=== PATIENT | male | born 1945 | race African-American/Black ===

== ENCOUNTER 2019-09-23 12:01 | Emergency (ER) | payer MEDICARE ==
[~2019-09-23] VITALS: Ht 170.2 cm; Wt 81.6 kg
[~2019-09-23 12:01] MED LIST: AMLO1CAP PO; ASPI-482 PO; HYDR-3164 PO; LOVA20TA2 PO; METF500T16 PO; MULT-658 PO
[2019-09-23 12:33] VITALS: BP 147/82
--- NOTE | 2019-09-23 13:33 | RAD ---
EXAM: Left lower extremity venous Doppler sonogram. HISTORY: Pain and swelling. TECHNIQUE: Florez scale and color Doppler sonographic evaluation of the left lower extremity veins with spectral waveform analysis was performed. FINDINGS: There is normal color flow, normal compressibility and there are normal spectral waveforms in the common femoral, superficial femoral, popliteal, posterior tibial and greater saphenous veins. IMPRESSION: No Doppler evidence of lower extremity deep venous thrombosis. Electronically signed by: Martha Guallpa MD (09/23/2019 1:30 PM) [place] [id number]
[2019-09-23] MEDS ORDERED: NAPR-695 PO (13:43)
[2019-09-23] MEDS ORDERED: CYCL10TA2 PO (13:43)
--- NOTE | 2019-09-23 13:43 | PHYS DOC ---
Past Medical History Past Medical History: Cancer, Diabetes-Type II, High Cholesterol, Hypertension Past Surgical History: Cancer Surgery, Cholecystectomy Alcohol Use: Occasionally Drug Use: None Adult General Chief Complaint Chief Complaint: LOWER EXT PAIN HPI HPI Patient is a 73 year old AA male who presents to the ER with complaints of pain in the back of his left thigh just below his buttock that radiates down to his foot at times for the last week. Pt denies any known injury, left leg swelling, shortness of breath, redness, warmth, or history of blood clots. PT states that the pain increases with movement. He denies any loss of bowel or bladder control or saddle anesthesia. He currently rates the pain a 8/10 on the pain scale, he denies any alleviating or exacerbating factors. The pain increases with lifting of his left leg. PT denies any numbness, tingling, or weakness of his left leg. He denies any recent falls. All other ROS is neg unless otherwise noted in HPI. Review of Systems Review of Systems See Above Allergies Allergies Allergies Coded Allergies Type Severity Reaction Last Updated Verified No Known Drug Allergies 11/29/14 No Physical Exam Physical Exam See Above Constitutional: Well developed, well nourished, no acute distress, non-toxic appearance. [] HENT: Normocephalic, atraumatic, bilateral external ears normal, nose normal. [] Eyes: PERRLA, EOMI, conjunctiva normal, no discharge. [] Neck: Normal range of motion, no stridor. [] Cardiovascular:Heart rate regular rhythm Lungs & Thorax: Bilateral breath sounds clear to auscultation [] Skin: Warm, dry, no erythema, no rash. [] Back: No tenderness, no CVA tenderness. [] Extremities: LLE: pedal and posterior tibial pulses 2+, No tenderness, no cyanosis, no clubbing, ROM intact, no edema; increased L leg pain with straight leg lift. [] Neurologic: Alert and oriented X 3, no focal deficits noted. [] Psychologic: Affect normal, judgement normal, mood normal. [] Current Patient Data Vital Signs Vital Signs Date Time Temp Pulse Resp B/P (MAP) Pulse Ox O2 Delivery O2 Flow Rate FiO2 09/23/19 12:33 98.2 94 16 147/82 (103) 99 Room Air 98.2 EKG EKG [] Radiology/Procedures Radiology/Procedures PROCEDURE: VENOUS LOWER EXTREMITY LEFT EXAM: Left lower extremity venous Doppler sonogram. HISTORY: Pain and swelling. TECHNIQUE: Florez scale and color Doppler sonographic evaluation of the left lower extremity veins with spectral waveform analysis was performed. FINDINGS: There is normal color flow, normal compressibility and there are normal spectral waveforms in the common femoral, superficial femoral, popliteal, posterior tibial and greater saphenous veins. IMPRESSION: No Doppler evidence of lower extremity deep venous thrombosis. [] Course & Med Decision Making Course & Med Decision Making Pertinent Labs and Imaging studies reviewed. (See chart for details) Patient is a 73-year-old -[place] male who presented to the emergency department with complaint of posterior left thigh pain that shoots down his leg to his foot intermittently for the last 7 days. He denied any recent injury, fall or history of blood clots. Ultrasound was negative for any DVT. The patient's pain increased with left straight leg lift concerning for sciatic pain. Prescription was written for naproxen 375 mg by mouth twice a day 10 days, and Flexeril 10 mg tablets one by mouth 3 times a day 10 days. Patient was instructed to follow-up with his primary care provider. Activity as tolerated. May apply heat or ice to sore areas as needed for comfort. Return to the ER if symptoms worsen or he develops a fever. pt verbalized an understanding of home care, medications, follow-up, and return to ED instructions and was in agreement with the plan of care. [] Dragon Disclaimer Dragon Disclaimer This electronic medical record was generated, in whole or in part, using a voice recognition dictation system. Departure Departure Impression: Primary Impression: Sciatica of left side without back pain Disposition: 01 HOME, SELF-CARE Condition: STABLE Referrals: ADRIEN LITTLE MD (PCP) Patient Instructions: Sciatica, [id number] Additional Instructions: Fill the prescriptions and take as directed for pain. Follow up with your primary care doctor next week. Return to the ER if symptoms worsen. Scripts Cyclobenzaprine Hcl (CYCLOBENZAPRINE HCL) 10 Mg Tablet 1 TAB PO TID PRN for PAIN for 10 Days, #30 TAB 0 Refills Prov: YAYA SEQUEIRA OIL DELIVERER 09/23/19 Naproxen (NAPROXEN) 375 Mg Tablet 1 TAB PO BID for 10 Days, #20 TAB 0 Refills Prov: YAYA SEQUEIRA APRN 09/23/19 YAYA SEQUEIRA APRN Sep 23, 2019 13:43
== END 2019-09-23 13:50 | disposition home or self-care (01) ==
LOC: ER 12:01
DX: M54.32 Sciatica, left side (principal); E11.9 Type 2 diabetes mellitus without complications; E78.00 Pure hypercholesterolemia, unspecified; I10 Essential (primary) hypertension
CPT/HCPCS: 93971; 99284-25; 99285-25